=== PATIENT | female | born 1965 | race Caucasian/White ===

== ENCOUNTER 2022-07-01 23:24 | Emergency (ER) | payer BC ==
[2022-07-01] MEDS ORDERED: 50% Dextrose in Water 50 ML Syringe IVPUSH PRN ×2 (23:38→23:51)
[2022-07-01] MEDS ORDERED: Glucagon,Human Recombinant 1 MG Vial IM PRN ×2 (23:38→23:51)
[2022-07-01] MEDS ORDERED: Insulin Glargine,Human Rec. Analog 100 Units/ML 3 ML Pen SUBCUT STA (23:38)
[2022-07-01] MEDS ORDERED: Insulin Regular, Human 100 Units/ML 3 ML Vial SUBCUT STA (23:39)
[2022-07-01] MEDS ORDERED: Insulin Lispro 100 Unit/ML 3 ML KwikPen SUBCUT STA (23:51)
== END 2022-07-02 00:09 | disposition home or self-care (01) ==
LOC: JP.ED 23:24
DX: T85.614A Breakdown (mechanical) of insulin pump, initial encounter (principal); E10.9 Type 1 diabetes mellitus without complications; Z79.4 Long term (current) use of insulin; Z79.899 Other long term (current) drug therapy
CPT/HCPCS: 99283; J1815